=== PATIENT | male | born 1995 | race African-American/Black ===

== ENCOUNTER 2020-05-26 03:23 | Emergency (ER) | payer BC ==
[2020-05-26 04:06] VITALS: BP 148/84; PULSE 113; TEMP 98.5; BMI 27.0
[2020-05-26] MEDS ORDERED: SODIUM CHLORIDE 1,000 ML IV STA (04:16)
--- NOTE | 2020-05-26 04:17 | PDOC ---
History of Present Illness - General Chief Complaint: Lightheaded Stated Complaint: DIZZINESS History Source: Patient Exam Limitations: No Limitations - History of Present Illness Initial Comments: Pt is a 25 yo M, with PMH of anxiety (previously on zoloft), who is presenting with complaints of light-headedness and palpitations x3 days. Pt states this is different from his anxiety. His palpitations are worse at night, and he came to the ED today because he was having difficulty sleeping. Pt went to [facility] and had a negative work-up, except for abnormal thyroid tests which were due to his biotin supplement use. Pt denies SI/HI, denies hallucinations, manic episodes. Pt denies any fevers/chills, headache, vision changes, syncope, chest pain, SOB, nausea/vomiting, abdominal pain, urinary symptoms, diarrhea/constipation, or leg swelling. Allergies: NKDA PCP: None UTD on vaccinations, normal history. Social: Pt denies any cigarette or alcohol use. Regular THC use, denies other illicit substances. Denies exercise or other herbal supplementations. Pt lives with his parents. Pt denies any recent travel or sick contacts. Surgical: no relevant history. Family: no relevant history. 05/26/20 05:25 05/26/20 05:30 Past History - Travel History Traveled outside of the country in the last 30 days: No Close contact w/someone who was outside of country & ill: No - Medical History Allergies/Adverse Reactions: Allergies Allergy/AdvReac Type Severity Reaction Status Date / Time No Known Allergies Allergy Verified 05/26/20 04:05 Home Medications: Ambulatory Orders NK [No Known Home Medication] 05/26/20 - Psycho-Social/Smoking History Smoking History: Never smoked Have you smoked in the past 12 months: No Information on smoking cessation initiated: No - Substance Abuse Hx (Audit-C & DAST Scrn) How often the patient has a drink containing alcohol: Monthly or less Score: In Men: 4 or > Positive; In Women: 3 or > Positive: 1 Screen Result (Pos requires Nsg. Audit-10AR): Negative In the last yr the pt used illegal drug/Rx for NonMed reason: Yes Score: Yes response is considered Positive: 1 Screen Result (Positive result requires Nsg. DAST-10): Positive Cardiac Specific PMH - Complaint Specific PMHX Angina: No GERD: No Myocardial Infarction: No Review of Systems - Review of Systems Able to Perform ROS?: Yes Is the patient limited Georgian proficient: No Constitutional: Yes: Weight Stable. No: Chills, Diaphoresis, Fever, Loss of Appetite, Malaise, Weakness HEENTM: No: Recent change in vision, Nose Congestion, Throat Pain, Throat Swelling, Difficulty Swallowing Respiratory: No: Cough, Orthopnea, Shortness of Breath Cardiac (ROS): Yes: Lightheadedness, Palpitations. No: Chest Pain, Edema, Irregular Heart Rate, Syncope, Chest Tightness ABD/GI: No: Constipated, Diarrhea, Nausea, Poor Appetite, Poor Fluid Intake, Vomiting, Abdominal cramping : No: Burning, Dysuria, Frequency, Pain, Urgency Musculoskeletal: No: Back Pain, Neck Pain Integumentary: No: Rash Neurological: No: Headache, Numbness, Weakness, Unsteady Gait, Dizziness Psychiatric: No: Sleep Pattern Change, Change in Appetite Endocrine: No: Increased Urine, Change in Weight Hematologic/Lymphatic: No: Anemia, Blood Clots, Easy Bleeding, Easy Bruising All Other Systems: Reviewed and Negative *Physical Exam - Vital Signs Last Vital Signs Temp Pulse Resp BP Pulse Ox 98.5 F 113 H 20 148/84 99 05/26/20 04:05 05/26/20 04:05 05/26/20 04:05 05/26/20 04:05 05/26/20 04:05 - Physical Exam HR low 100s, pt afebrile. Pt in NAD, normal body habitus. Pt alert and oriented x3. Pressured speech, but answers questions appropriately. 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 No midline spinal tenderness, step-offs, or crepitus. Head normocephalic, atraumatic. Eyes PERRLA, EOMI. Oropharynx without erythema or exudates, no LAD b/l. No nasal congestion. Hearing intact. Clear heart sounds, S1/S2, no JVD, b/l pedal edema, or heart murmur. Clear lung sounds, no respiratory distress, wheezes, crackles, or accessory muscle use. No abdominal or CVA tenderness to palpation, no rebound, no guarding. Abdomen soft, non-distended, and with normoactive bowel sounds. Skin without jaundice or rash. 05/26/20 05:29 05/26/20 05:30 ED Treatment Course - LABORATORY CBC & Chemistry Diagram: 05/26/20 04:37 05/26/20 04:37 - ADDITIONAL ORDERS Additional order review: Laboratory Results 05/26/20 04:37 Sodium 138 Potassium 4.3 Chloride 105 Carbon Dioxide 26 Anion Gap 7 L Creatinine 1.0 Est GFR (CKD-EPI)AfAm 122.41 Est GFR (CKD-EPI)NonAf 105.62 Random Glucose 99 Calcium 9.4 Magnesium 2.4 Total Bilirubin 0.6 AST 18 ALT 24 Alkaline Phosphatase 81 Troponin I < 0.02 Total Protein 8.0 Albumin 5.0 TSH 1.23 Free T4 1.26 H 05/26/20 04:37 RBC 6.47 H MCV 70.7 L MCHC 31.9 L RDW 15.3 MPV 8.8 Neutrophils % 82.7 Lymphocytes % 10.6 Monocytes % 5.9 Eosinophils % 0.3 Basophils % 0.5 - RADIOLOGY Radiology Studies Ordered: Category Date Time Status CHEST PA & LAT [RAD] Stat Radiology 05/26/20 04:16 Taken - Medications Given in the ED: ED Medications Discontinued Medications Generic Name Dose Route Start Last Admin Trade Name Freq PRN Reason Stop Dose Admin Sodium Chloride 1,000 mls @ 1,000 mls/hr 05/26/20 04:16 05/26/20 04:48 Normal Saline - IV 05/26/20 05:15 1,000 mls/hr ASDIR STA Administration Medical Decision Making - Medical Decision Making Pt was seen at bedside, also will be seen by attending Dr. Masters. Pt presenting with palpitations, light-headedness. Will evaluate for electrolyte abnor malities, thyroid dysfunction, anemia, arrhythmia. Provided 1 L IV NS for improvement of potential dehydration/tachycardia. Will continue to reassess pt and monitor for symptomatic improvement. ECG: NSR, intervals WNL. Early repol. No TWIs or significant ST segment changes. No significant changes from prior ECG. 05/26/20 05:31 Microcytic CBC but no anemia Trop <.02 TSH WNL, T4 slightly elevated potentially from biotin Pt safe for d/c to home. Will provide referral for PCP f/u clinic. Strict return precautions provided with pt understanding. 05/26/20 05:42 Discharge - Discharge Information Problems reviewed: Yes Clinical Impression/Diagnosis: Palpitations Condition: Good Disposition: HOME - Admission No - Follow up/Referral Referrals: [facility] – [place] [facility] [place] [Provider Group] - Patient Discharge Instructions Patient Printed Discharge Instructions: DI for Palpitations Additional Instructions: You were seen in the ER today for palpitations and light-headedness. The results of your labs and imaging today were normal, except for your thyroid T4 which was just slightly elevated (possibly from biotin use). Please follow-up with your primary care doctor within 1-2 days to discuss your visit and make sure your symptoms have improved. Please return to the ER if you have any worsening pain, development of fevers or chills, loss of consciousness, inability to tolerate food or fluids, or any other concerns. - Post Discharge Activity
[2020-05-26 05:02] LABS: BASO % 0.5 % (0-2.0); EOS % 0.3 % (0-4.5); HEMATOCRIT 45.8 % (35.4-49); HEMOGLOBIN 14.6 GM/dL (11.7-16.9); LYMPH % 10.6 % (8-40); MCH 22.6 pg (25.7-33.7); MCHC 31.9 g/dl (32.0-35.9); MEAN CELL VOLUME 70.7 fl (80-96); MEAN PLT VOLUME 8.8 fl (7.5-11.1); MONO % 5.9 % (3.8-10.2); NEUT % 82.7 % (42.8-82.8); PLATELET COUNT 271 K/MM3 (134-434); RBC 6.47 M/mm3 (4.00-5.60); RDW 15.3 % (11.9-15.9); WHITE BLOOD COUNT 12.8 K/mm3 (4.0-10.0)
--- NOTE | 2020-05-26 05:09 | PDOC ---
Attending Attestation - Resident Resident Name: Yani Slater - ED Attending Attestation I have performed the following: I have examined & evaluated the patient, The case was reviewed & discussed with the resident, I agree w/resident's findings & plan, Exceptions are as noted - HPI HPI: 05/26/20 07:55 See resident HPI - Physicial Exam PE: 05/26/20 07:55 Agree with documented exam - Medical Decision Making 05/26/20 07:55 Palpitations and lightheadedness worse when trying to fall asleep, no family hx of sudden , syncope, tachydysrythmias f/u labs including trop, ekg, cxr, tsh dispo per clinical course likely dc Discharge - Discharge Information Problems reviewed: Yes Clinical Impression/Diagnosis: Palpitations Condition: Good Disposition: HOME - Follow up/Referral Referrals: [facility] – [place] [facility] [place] [Provider Group] - Patient Discharge Instructions Patient Printed Discharge Instructions: DI for Palpitations Additional Instructions: You were seen in the ER today for palpitations and light-headedness. The results of your labs and imaging today were normal, except for your thyroid T4 which was just slightly elevated (possibly from biotin use). Please follow-up with your primary care doctor within 1-2 days to discuss your visit and make sure your symptoms have improved. Please return to the ER if you have any worsening pain, development of fevers or chills, loss of consciousness, inability to tolerate food or fluids, or any other concerns. - Post Discharge Activity
[2020-05-26 05:30] LABS: ALK PHOS 81 U/L (45-117); ANION GAP 7 MMOL/L (8-16); BILIRUBIN,TOTAL 0.6 mg/dL (0.2-1); CALCIUM 9.4 mg/dL (8.5-10.1); CHLORIDE 105 mmol/L (98-107); CO2 26 mmol/L (21-32); GLUCOSE,RANDOM 99 mg/dL (74-106); MAGNESIUM 2.4 mg/dL (1.8-2.4); POTASSIUM 4.3 mmol/L (3.5-5.1); SGOT/AST 18 U/L (15-37); SGPT/ALT 24 U/L (13-61); SODIUM 138 mmol/L (136-145)
--- NOTE | 2020-05-26 10:43 | EKG ---
Test Reason : Blood Pressure : / mmHG Vent. Rate : 102 BPM Atrial Rate : 102 BPM P-R Int : 134 ms QRS Dur : 086 ms QT Int : 322 ms P-R-T Axes : 074 081 054 degrees QTc Int : 419 ms SINUS TACHYCARDIA OTHERWISE NORMAL ECG NO PREVIOUS ECGS AVAILABLE Confirmed by STEPHANIE MOHR MD ([id number]) on 05/26/2020 10:43:13 AM Referred By: Confirmed By:STPEHANIE MOHR MD
== END 2020-05-26 06:24 | disposition home or self-care (01) ==
LOC: JER 03:23
PROC: 3E0337Z Introduction of Electrolytic and Water Balance Substance into Peripheral Vein, Percutaneous Approach (ICD-10-PCS; principal; 2020-05-26)
DX: R00.2 Palpitations (principal)
CPT/HCPCS: 36415; 71046-TC-FY; 80053; 83735; 84439; 84443; 84484; 85025; 93005; 93010; 99284-25